=== PATIENT | female | born 1960 | race Caucasian/White ===

== ENCOUNTER 2017-08-28 11:15 | Outpatient (CLI) | payer MEDICARE ==
--- NOTE | 2017-08-28 14:41 | MRI ---
MRI OF BRAIN: CLINICAL HISTORY: Brainstem glioma. FINDINGS: Reference is made to 08/24/15. FINDINGS: Ventricular system is normal in size. There is no acute territorial infarction or midline shift. There is subtle signal alteration again seen at the level of the medulla, bilaterally, without eviden ce of intrinsic enhancement. There is a stable, mild degree of asymmetric left cerebral hemispheric atrophy. No additional significant interval detrimental change. IMPRESSION: Stable subtle signal alteration without associated enhancing involving the medulla, bilaterally. The re is also stable mild asymmetric left cerebellar hemispheric atrophy. 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 Recommend clinical correlation. POS: JUN
== END 2017-08-28 11:16 | disposition home or self-care (01) ==
LOC: MRI 11:15
PROVIDERS: ATTEND Psychiatry & Neurology Neurology
DX: C71.7 Malignant neoplasm of brain stem (principal); G31.89 Other specified degenerative diseases of nervous system
CPT/HCPCS: 70553